=== PATIENT | male | born 1945 | race Caucasian/White ===

== ENCOUNTER → 2019-01-16 13:13 | Outpatient (CLI) | payer OTHER | END | disposition home or self-care (01) | LOC: D.US 13:13 | PROVIDERS: ATTEND Surgery | DX: I73.9 Peripheral vascular disease, unspecified (principal) ==

== ENCOUNTER → 2019-01-23 08:26 | Outpatient (CLI) | payer OTHER | END | disposition home or self-care (01) | LOC: D.CT 08:26 | PROVIDERS: ATTEND Surgery | DX: I73.9 Peripheral vascular disease, unspecified (principal) ==

== ENCOUNTER → 2020-05-20 09:41 | Outpatient (CLI) | payer OTHER ==
[2020-03-29 12:35] VITALS: BMI 32.8
[~2020-05-20 09:41] MED LIST: ASPIRIN325 MG PO; BUPROPION XL150 MG PO; DULERA 200 MCG8.8 GM INH; FOLIC ACID1 MG PO; LIPITOR40 MG PO; LISINOPRIL10 MG PO; LITHIUM CARBON300 M3 PO; MUCINEX600 MG PO; OMNICEF300 MG PO; PHENERGAN25 M1 PO; TESSALON PERLE100 MG PO; VENTOLIN HFA [SP8 GM INH; ZITHROMAX250 MG PO; ZOLOFT100 MG PO
== END | disposition home or self-care (01) ==
LOC: D.LAB 09:41
PROVIDERS: ATTEND Internal Medicine Pulmonary Disease
DX: J44.9 Chronic obstructive pulmonary disease, unspecified (principal); Z11.52 Encounter for screening for COVID-19

== ENCOUNTER → 2020-05-23 07:25 | Outpatient (CLI) | payer OTHER ==
[2020-03-29 12:35] VITALS: BMI 32.8
== END | disposition home or self-care (01) ==
LOC: D.RT 07:25
PROVIDERS: ATTEND Internal Medicine Pulmonary Disease
DX: J44.9 Chronic obstructive pulmonary disease, unspecified (principal)